=== PATIENT | female | born 1955 | race Hispanic/Latino ===

== ENCOUNTER → 2018-01-22 | Outpatient (CLI) | payer OTHER ==
[~2018-01-22] MED LIST: REGADENOSON 0.4 MG/5 ML PF SYG IVP ONE; REGADENOSON 0.4 MG/5 ML PF SYG IVP SCH
== END | disposition home or self-care (01) ==
LOC: RAH 08:22
PROVIDERS: ATTEND Internal Medicine Cardiovascular Disease
DX: R07.9 Chest pain, unspecified (principal); R94.31 Abnormal electrocardiogram [ECG] [EKG]; R00.1 Bradycardia, unspecified; R06.02 Shortness of breath
CPT/HCPCS: 78452; 93017; 96374; A9500 ×2; J2785

== ENCOUNTER → 2023-01-19 | Outpatient (CLI) | payer OTHER, MEDICARE ==
[~2023-01-19] MED LIST changes: -REGADENOSON 0.4 MG/5 ML PF SYG IVP SCH
== END | disposition home or self-care (01) ==
LOC: SHCH 08:45
PROVIDERS: ATTEND Internal Medicine Cardiovascular Disease
DX: Z01.810 Encounter for preprocedural cardiovascular examination (principal); R94.31 Abnormal electrocardiogram [ECG] [EKG]
CPT/HCPCS: 78452; 96374; 93017; J2785; A9500 ×2

== ENCOUNTER 2024-10-07 08:50 | Observation (INO) | payer OTHER, MEDICARE ==
[2024-10-06 10:49] LABS: IMMATURE GRANULOCYTE ABSOLUTE 0.02 K/uL (0-1); NUCLEATED RED BLOOD CELLS 0.0 % (0.0-0.19); PLATELET COUNT (AUTO) 149 K/uL (130-400); RED BLOOD CELL COUNT(AUTO) 4.05 MIL/uL (4.00-5.50); RED CELL DISTRIBUTION WIDTH 13.8 % (11.0-15.5); WHITE BLOOD COUNT (AUTO) 6.2 K/uL (4.8-10.8)
[2024-10-06 11:00] LABS: CREATININE 0.8 mg/dL (0.5-1.0); GLOMERULAR FILTR. RATE CALC 80.0 mL/min (>90); GLUCOSE,RANDOM 94.0 mg/dL (70-105); INR 0.97 (0.85-1.15); SODIUM SERUM 138.0 mmol/L (136-145); UREA NITROGEN, BLOOD 22.0 mg/dL (7-18)
[2024-10-06 11:04] LABS: APPEARANCE,URINE CLEAR (CLEAR); GLUCOSE, URINE (UA) NEGATIVE (NEGATIVE); LEUKOCYTE ESTERASE ,URINE NEGATIVE Leu/uL (NEGATIVE); NITRATE,URINE NEGATIVE (NEGATIVE); OCCULT BLOOD,URINE NEGATIVE (NEGATIVE)
[2024-10-06 11:16] LABS: ADD UA MICROSCOPIC NO
--- NOTE | 2024-10-06 11:23 | EKG ---
[facility] Test Date: 2024-10-06 Test Time: 10:32:23 Pat Name: KATHRIN BARROSO Department: [facility] Room: Gender: F Document Coordinator: [id number] : 1955 Requested By: ORESTES JONES Order Number: [id number] Reading MD: Citlalli Basurto Measurements Intervals [place] Rate: 57 P: 30 ME: 60 QRS: 69 QRSD: 91 T: 74 QT: 426 QTc: 414 Interpretive Statements Sinus rhythm No previous ECG available for comparison Electronically Signed On 10-06-2024 15:31:10 CDT by Citlalli Basurto Please click the below link to view image of tracing.
[2024-10-06 12:14] VITALS: BP 145/63; PULSE 60; RESP 18; TEMP 97.3
[~2024-10-07] VITALS: Ht 165.1 cm; Wt 96.6 kg
[2024-10-07] VITALS (25 sets, daily range): BP systolic 117–137; BP diastolic 32–68; PULSE 65–94; RESP 15–18; TEMP 97.3–98.4; O2SAT 96–97
[~2024-10-07 08:50] MED LIST changes: +ALEN35TA53 PO; +ASCO500C18 PO; +ASPI-1197 PO; +BIOT1TAB PO; +BUSP15TA3 PO; +CALC-1209 PO; +CHOL100040 PO; +ESCI20TA PO; +GABA-529 PO; +HYDR50TA PO; +LEVO50CA5 PO; +MELO-106 PO; +MIRT-93 PO; +OMEG100014 PO; +PRAV20TA59 PO; -REGADENOSON 0.4 MG/5 ML PF SYG IVP ONE; +SIME80TA12 PO; +TIRZ7.5P SQ
[2024-10-07] MEDS ORDERED: LIDOCAINE PF 100MG/5ML (2%) SYRINGE 5ML ONE (10:35)
[2024-10-07] MEDS ORDERED: SUCCINYLCHOLINE CHLORIDE 20 MG/ML 10 ML VIAL ONE (10:36)
[2024-10-07] MEDS ORDERED: MIDAZOLAM HCL 1 MG/ML 2ML VIAL ONE (10:36)
[2024-10-07] MEDS: TRANEXAMIC ACID 1000MG/10ML ONE ×2 (11:20→12:12)
[2024-10-07] MEDS: THROMBIN-JMI 20000 UNIT KIT TP ONE (12:12)
[2024-10-07] MEDS: VANCOMYCIN 1G/250ML KIT 250 ML IV ONE (12:12)
[2024-10-07] MEDS ORDERED: NEOSTIGMINE METHYLSULFATE 1MG/ML IV ONE (13:11)
[2024-10-07] MEDS ORDERED: GLYCOPYRROLATE 0.2 MG/ML 5 ML VIAL ONE (13:11)
[2024-10-07] MEDS: 0.9%NACL 1000ML 1,000 ML IV SCH (15:00)
[2024-10-08] VITALS: BP 117/57; PULSE 59; RESP 20; TEMP 98.2
[2024-10-08 04:00] VITALS: BP 100/48; PULSE 62; RESP 18; TEMP 98
[2024-10-08 08:00] VITALS: BP 118/70; PULSE 61; RESP 15; TEMP 98.5; O2SAT 98
[2024-10-08] MEDS: (Cholecalciferol (Vitamin D3) 25 MCG) PO SCH (08:34)
[2024-10-08] MEDS: FATTY ACIDS PO SCH (08:34)
[2024-10-08] MEDS: OMEGA PO SCH (08:34)
[2024-10-08] MEDS: (Biotin 1 MG) PO SCH (08:34)
[2024-10-08] MEDS: CA 600MG+VIT D 400 UNIT TAB 1 TAB TABLET PO SCH (08:35)
[2024-10-08] MEDS: ASCORBIC ACID 500 MG TAB PO SCH (08:36)
[2024-10-08] MEDS: SIMETHICONE 80 MG TAB.CHEW PO SCH (08:37)
--- NOTE | 2024-10-08 09:03 | OP ---
DATE OF PROCEDURE: 10/07/2024 HISTORY: The patient is a 68-year-old female patient with history of intractable neck pain and evidence of C5 radiculopathy, for which she was advised, agreed and consented freely after she has failed conservative treatment. PREOPERATIVE DIAGNOSES: Cervical spondylosis with intractable neck pain and radiculopathy. POSTOPERATIVE DIAGNOSES: Cervical spondylosis with intractable neck pain and radiculopathy. PROCEDURE: Anterior cervical diskectomy and fusion at C4-C5 with PEEK cage, allograft bone, and cervical plate. SURGEON: Mitchell Chase M.D. ANESTHESIA: General. INTRAOPERATIVE COMPLICATIONS: The patient tolerated the procedure well. PROCEDURE DETAILS: The patient was brought to the operating room. Adequate general endotracheal anesthesia was achieved. IV antibiotics were given. Thereafter, the patient underwent placement of DVT garments and needles for the EMG, SSEP, and positioned supine with adequate padding to pressure area and shoulder roll. The neck was in a neutral position. It was prepped and draped in the usual sterile fashion. was used to stab incision with blade, Bipolar coagulation. I was able to expose the platysma, which was cut along the longitudinal fibers, and then sharp and blunt dissection until the prevertebral fascia was encountered. Thereafter, the was used, identifying the longus colli was dissected bilaterally. The trimline retractor was docked underneath them and then the disk was incised with Blade 11, upward curette, pituitary rongeur and then the drill to continue the diskectomy arthrodesis. The posterior longitudinal ligament was opened through the same rent that was visible, and I decompressed and removed all the disk material. The foramina were opened as well with the [place] rongeurs and hemostasis achieved with which upon irrigation, they were removed as hemostasis was achieved as well. Thereafter, the arthrodesis was achieved. A PEEK cage #8 fixed knot, this was packed with allograft bone, and position was adequate, position under the fluoroscopic guidance. The cervical plate was brought into the field and again on the AP and lateral fluoroscopy, this was secured to the plate locking mechanism with the screws. The plate was secured to the vertebral bodies of C4-C5 and through the plate locking mechanism. Copious irrigation was done with bacteriostatic solution. The wound was sprinkled with antibiotic in powder, and thereafter, it was closed by anatomical layer, platysma with Vicryl 3, subcutaneous as well, and a subcuticular stitch and Dermabond for the skin. The patient tolerated the procedure well. There were no complications. Family members were addressed. TID: [id number] RECEIPT: [id number]
[2024-10-08 11:54] VITALS: BP 125/72; PULSE 66; RESP 16; TEMP 98.3
--- NOTE | 2024-10-08 13:10 | NUR ---
DCP: HOME Pt currently lives with rahul Dalton, son and MAGDALENA. Pt does not have DME, home health, or provider services at this time. Pt is able to complete ADLs independently. PCP is Dr. Susan Chapa and uses [facility] for any RX needs. At [place] pt will want to go home and family can assist with transportation. Addendum: 10/08/24 at 1315 by JENNIFER MAYO SS Amended: Links added.
[2024-10-08 16:00] VITALS: BP 107/55; PULSE 60; RESP 16; TEMP 98.1
[2024-10-14] MEDS ORDERED: ALENDRONATE SODIUM 35 MG TAB PO SCH (09:00)
== END 2024-10-08 18:35 | disposition home or self-care (01) ==
LOC: DAH 08:50 → DAHIP 08:51 → DAH 08:51 → INTOOBSV 08:51 → 4AH 15:02
PROVIDERS: ADMIT Neurological Surgery; ATTEND Neurological Surgery
DX: M48.02 Spinal stenosis, cervical region (principal); M47.22 Other spondylosis with radiculopathy, cervical region; M54.2 Cervicalgia; Z79.899 Other long term (current) drug therapy; Z86.2 Personal history of diseases of the blood and blood-forming organs and certain disorders involving the immune mechanism
CPT/HCPCS: 80048; 85025; 85610; 85730; 86850; 86900; 86901; 81003; 36415; 93005; 22551; 22853; 20930; 22845; 96374; 72020; 96376; A4510; A4663; J3010 ×2; J3490 ×6; J1100; J0330; J0665; J2003; J2250; J2704; J2405; J2710; J3373; J2371; J1010; J3260; J1171 ×2; J0690; A6206; A4649 ×5; C1889; A4215; A4223 ×2; A4213; A4222; A4221; A4216; A4600; G0378 ×5; C1713